=== PATIENT | female | born 1995 | race Caucasian/White ===

== ENCOUNTER 2017-10-26 10:38 | Outpatient (CLI) | payer OTHER, BC ==
[2017-10-26 20:18] LABS: FOLLICLE STIMULATING HORMONE 5.95 mIU/mL
[2017-10-26 20:20] LABS: LUTEINIZING HORMONE 16.34 mIU/mL
== END 2017-10-26 10:39 | disposition home or self-care (01) ==
LOC: LAB.N 10:38
PROVIDERS: ATTEND Obstetrics & Gynecology
DX: N83.209 Unspecified ovarian cyst, unspecified side (principal)
CPT/HCPCS: 36415; 83001; 83002

== ENCOUNTER 2020-10-15 16:24 | Outpatient (CLI) | payer OTHER | END 2020-10-15 16:25 | disposition home or self-care (01) | LOC: LAB.N 16:24 → MERGE 16:24 → LAB.N 16:25 | PROVIDERS: ATTEND Nurse Practitioner Obstetrics & Gynecology | DX: O26.859 Spotting complicating pregnancy, unspecified trimester (principal) ==

== ENCOUNTER 2020-10-18 20:51 | Outpatient (CLI) | payer OTHER ==
--- NOTE | 2020-10-19 07:34 | Ultrasound Report ---
PROCEDURE: OB First Trimester w/TV INDICATIONS: SPOTTING, OUTSIDE/PRIOR DATING DATA: Last menstrual period (LMP): 07/10/2020. LMP-based estimated date of delivery (BONNIE): 04/16/2021. First dating scan (date and location): 10/18/2020. Estimated date of delivery (BONNIE) from first dating scan: N/K: No evidence of intrauterine o r ectopic . TECHNIQUE: Real-time scanning was performed of the maternal pelvic organs, with image documentation. Endovagina l scanning was also performed to better visualize the fetus and maternal ovaries. COMPARISON: None FINDINGS: There is no evidence of intrauterine or ectopic . The uterus measures 7 x 3 x 4 cm. Endometrium is 7.4 mm in thickness. Left ovary measures 3.3 x 4.2 x 2.0 cm. Right ovary measures 3.2 x 1.9 x 2.9 cm. There is normal intr aovarian flow noted bilaterally. No abnormal adnexal masses. IMPRESSION: 1. No evidence of intrauterine or ectopic . 2. Otherwise unremarkable pelvic ultrasound. A preliminary report with the above findings was provided at the time of the study by [facility]. Reviewed by: Amilcar Gaytan MD on 10/19/2020 6:33 AM ROSIE Approved by: Amilcar Gaytan MD on 10/19/2020 6:33 AM [facility] Station ID: [id number]
== END 2020-10-18 20:52 | disposition home or self-care (01) ==
LOC: DI 20:51 → MERGE 20:51 → DI 20:52
PROVIDERS: ATTEND Obstetrics & Gynecology
DX: O26.859 Spotting complicating pregnancy, unspecified trimester (principal)

== ENCOUNTER 2020-10-21 15:23 | Outpatient (CLI) | payer OTHER ==
[2020-10-21 15:50] LABS: BASOPHILS # (AUTO) 0.1 10^3/uL (0.0-0.1); BASOPHILS % (AUTO) 0.7 %; EOSINOPHILS # (AUTO) 0.2 10^3/uL (0.0-0.7); EOSINOPHILS % (AUTO) 2.5 %; HCT - HEMATOCRIT 36.1 % (37.0-47.0); HGB - HEMOGLOBIN 10.2 g/dL (12.0-16.0); LYMPHOCYTES # (AUTO) 1.6 10^3/uL (1.5-3.5); MEAN CORPUSCULAR HEMOGLOBIN 22.4 pg (27.0-31.0); MEAN CORPUSCULAR HGB CONC 28.3 g/dL (32.0-36.0); MEAN CORPUSCULAR VOLUME 79.2 fL (81.0-99.0); MEAN PLATELET VOLUME 11.1 fL (7.9-10.8); MONOCYTES # (AUTO) 0.6 10^3/uL (0.0-1.0); MONOCYTES % (AUTO) 7.9 %; NEUTROPHILS # (AUTO) 4.8 10^3/uL (1.5-6.6); NEUTROPHILS % (AUTO) 66.9 %; PLT - PLATELET COUNT 251 10^3/uL (130-450); RED BLOOD COUNT 4.56 10^6/uL (4.20-5.40); WHITE BLOOD COUNT 7.2 x10^3/uL (4.8-10.8)
[2020-10-21 15:52] LABS: SLIDE REVIEW? Indicated
[2020-10-21 16:30] LABS: RBC MORPHOLOGY (MULTIPLE) 1+ HYPOCHROMASIA (NORMAL)
[2020-10-21 16:31] LABS: PLATELET ESTIMATE, MANUAL NORMAL (130-450,000) (NORMAL); PLATELET MORPHOLOGY NORMAL APPEARANCE (NORMAL)
== END 2020-10-21 15:24 | disposition home or self-care (01) ==
LOC: MERGE 15:23 → LAB 15:23
PROVIDERS: ATTEND Obstetrics & Gynecology
DX: Z01.812 Encounter for preprocedural laboratory examination (principal); O02.1 Missed abortion; Z20.822 Contact with and (suspected) exposure to COVID-19
CPT/HCPCS: 36415; 85025

== ENCOUNTER 2020-10-24 06:39 | Day surgery (SDC) | payer OTHER ==
[~2020-10-24 06:39] MED LIST: ACETAMINOPHEN 1,000 MG/100 ML 100 ML IV ONE; CELECOXIB 100 MG CAPSULE PO ONE; GABAPENTIN 400 MG CAPSULE ONE; ceFAZolin 2 GM/50 ML 2 GM/50 ML BAG IV ONE
[2020-10-24] MEDS ORDERED: SILVER NITRATE APPLICATOR TOP ONE ×2 (07:12→07:20)
[2020-10-24] MEDS ORDERED: LIDOCAINE 2%-EPI 1:100000 20 ML MDV SUBQ ONE ×3 (07:19)
[2020-10-24] MEDS ORDERED: BUPIVACAINE 0.25% PF 30 ML VIAL SUBQ ONE (07:20)
[2020-10-24] MEDS ORDERED: LIDOCAINE 2%-EPI 1:100000 20 ML MDV ONE (07:21)
[2020-10-24] MEDS ORDERED: BUPIVACAINE 0.25% PF 30 ML VIAL ONE (07:21)
[2020-10-24] MEDS ORDERED: LACTATED RINGERS 1,000 ML IV ONE ×2 (07:24→08:26)
--- NOTE | 2020-10-24 07:24 | ANESTHESIA ---
Pre-Anesthesia VS, & Labs - Diagnosis Retained products of conception - Procedure myosure hysterscopy, D&C Vital Signs: Temp Pulse Resp BP Pulse Ox 36.7 C 97 16 135/74 H 100 10/24/20 06:45 10/24/20 06:45 10/24/20 06:45 10/24/20 06:45 10/24/20 06:45 Height: 5 ft 1 in Weight (kg): 63 kg Body Mass Index: 26.2 BMI Classification: Overweight - NPO >8 hours - Is Patient ?: No - Lab Results Current Lab Results: Laboratory Tests 10/24/20 07:16: POC Whole Bld Glucose 100 Home Medications and Allergies Home Medications: Ambulatory Orders Propranolol [Inderal] 10 mg PO BID 10/23/20 Propranolol [Inderal] 10 mg PO BID 10/23/20 Allergies/Adverse Reactions: Allergies Allergy/AdvReac Type Severity Reaction Status Date / Time cefaclor Allergy Unknown Verified 10/22/20 11:27 Anes History & Medical History - Anesthetic History Family history of Anesthesia Complications: Denies Family history of Malignant Hyperthermia: Denies - Medical History Cardiovascular: reports: None, Other (palpitations when anxious) Pulmonary: reports: None Gastrointestinal: reports: None Urinary: reports: None Neuro: reports: None Musculoskeletal: reports: None Endocrine/Autoimmune: reports: None Blood Disorders: reports: None Skin: reports: None Smoking Status: Current every day smoker Psychosocial: reports: Anxiety History of Cancer?: No Exam General: Alert, Oriented x3, Cooperative, No acute distress Dental: WNL Mouth Openin Fingerbreadth Neck Mobility: Normal Mallampati classification: I Thyromental Distance: 4-6 cm Mental/Cognitive Status: Alert/Oriented X3, Normal for patient Plan Anesthesia Type: General Consent for Procedure(s) Verified and Reviewed: Yes Code Status: Attempt Resuscitation ASA classification: 1-Healthy patient Is this case an emergency?: No
[2020-10-24] MEDS ORDERED: ONDANSETRON 4 MG/2 ML VIAL ONE (07:34)
[2020-10-24] MEDS ORDERED: PROPOFOL 200 MG/20 ML VIAL IVP ONE ×2 (07:34→07:43)
[2020-10-24] MEDS ORDERED: DEXAMETHASONE 4 MG/ML VIAL ONE (07:34)
[2020-10-24] MEDS ORDERED: LIDOCAINE-MPF 2% 5 ML VIAL ONE (07:34)
[2020-10-24] MEDS ORDERED: PROPOFOL 500 MG/50 ML 500 MG/50 ML VIAL ONE (07:35)
[2020-10-24] MEDS ORDERED: fentaNYL 100 MCG/2 ML VIAL ONE (07:37)
[2020-10-24] MEDS ORDERED: KETAMINE 500 MG/10 ML VIAL ONE (07:37)
[2020-10-24] MEDS ORDERED: MIDAZOLAM 2 MG/2 ML VIAL ONE (07:37)
[2020-10-24] MEDS ORDERED: SODIUM CHLORIDE 0.9% 10 ML ONE (07:40)
[2020-10-24] MEDS ORDERED: BUPIVACAINE 0.5% PF 30 ML VIAL INFIL ONE ×2 (08:05)
[2020-10-24] MEDS ORDERED: BUPIVACAINE 0.5% PF 30 ML VIAL ONE (08:11)
[2020-10-24] MEDS ORDERED: KETOROLAC 30 MG/ML VIAL ONE (08:11)
[2020-10-24] MEDS ORDERED: HYDROmorphone 0.5 MG/0.5 ML SYRINGE IVP PRN (08:28)
[2020-10-24] MEDS ORDERED: ONDANSETRON 4 MG/2 ML VIAL IVP PRN (08:28)
[2020-10-24] MEDS ORDERED: oxyCODONE 5 MG TABLET PO PRN (08:28)
[2020-10-24] MEDS ORDERED: LORazepam 2 MG/ML VIAL IVP PRN (08:28)
--- NOTE | 2020-10-24 08:32 | OPERATIVE REPORT ---
Operative Report - General Procedure Date: 10/24/20 Planned Procedure: Hysterscopy with Myosure Pre-Op Diagnosis: persistant Quantiaive HCG retained POC Procedure Performed: Same Post Op Diagnosis: Persistant QuantativeHCG - Procedure Note Primary Surgeon: Dangelo Boone MD Anesthesia Provider: Kalina Martínez CRNA Anesthesia Technique: Local, MAC Pathology: Endometrium Estimated Blood Loss (mL): 10
--- NOTE | 2020-10-24 08:55 | ANESTHESIA POST OP EVALUATION ---
Anesthesia Post Eval - Post Anesthesia Eval Vitals: Last Vital Signs Temp 36.0 C L 10/24/20 08:26 Pulse 73 10/24/20 08:45 Resp 22 10/24/20 08:45 BP 104/74 10/24/20 08:45 Pulse Ox 100 10/24/20 08:45 CV Function Including HR & BP: positive: Stable Pain Control: positive: Satisfactory Nausea & Vomiting: positive: Negative Mental Status: positive: Baseline Respiratory Status: Airway Patent Hydration Status: Satisfactory Anesthesia Complications: positive: None
[2020-10-24 09:17] VITALS: BP 101/62
[2020-10-24 09:32] LABS: HCG UR QUAL NEGATIVE
--- NOTE | 2020-10-24 09:40 | OPERATIVE REPORT ---
DATE OF SERVICE: 10/24/2020 Physician: Dangelo Boone MD PREOPERATIVE DIAGNOSES: Persistent quantitative hCG, rule out retained products of conception. POSTOPERATIVE DIAGNOSES: Continued persistent quantitative hCG with empty uterus. PROCEDURE PERFORMED: Hysteroscopy with MyoSure. SURGEON: Dangelo Boone MD. ANESTHESIOLOGIST: Gamaliel Martínez CRNA. ANESTHETIC: IV sedation with paracervical block. FINDINGS: Upon entering the uterine cavity, there was no evidence of any tissue. Both cornu were in spected. There was no evidence of any bleeding. DESCRIPTION OF PROCEDURE: Following adequate IV sedation, the patient was placed in the dorsal litho justine position in [facility]. At this point, she was prepped and draped in the usual fashion. A timeout was performed. The cervix was visualized with a speculum, and then the uterosacral ligaments were injected with 5 mL each of 0.25% Marcaine with epinephrine and 1% lidocaine. At this time, the cervix was grasped with a single-tooth tenaculum. It was then dilated up to 7 mm. A hysteroscope w as introduced. The uterus was visualized, both cornu as well as anterior and posteriorly, and there was no evidence of any visible placental tissue. Tissue samples were taken with the MyoSure. These were sent for evaluation. At this point, the procedure was finished. The cervix was released from t he single-tooth tenaculum. The patient tolerated the procedure well and was taken to recovery in sta ble condition. Fluid deficit was 270 mL. TD: 10/24/2020 08:43
== END 2020-10-24 06:40 | disposition home or self-care (01) ==
LOC: SDS 06:39 → MERGE 07:30
PROVIDERS: ATTEND Obstetrics & Gynecology
PROC: 0UDB8ZX Extraction of Endometrium, Via Natural or Artificial Opening Endoscopic, Diagnostic (ICD-10-PCS; principal; 2020-10-24 07:30)
DX: D25.0 Submucous leiomyoma of uterus (principal); E66.3 Overweight; Z68.26 Body mass index [BMI] 26.0-26.9, adult; F17.200 Nicotine dependence, unspecified, uncomplicated
CPT/HCPCS: 58558; 81025; 84702; A9270; J0131; J0690; J7120

== ENCOUNTER 2020-10-30 14:04 | Outpatient (CLI) | payer OTHER | END 2020-10-30 14:05 | disposition home or self-care (01) | LOC: LAB 14:04 | PROVIDERS: ATTEND Obstetrics & Gynecology | DX: O26.859 Spotting complicating pregnancy, unspecified trimester (principal) ==

== ENCOUNTER 2020-10-30 14:07 | Outpatient (CLI) | payer OTHER | END 2020-10-30 14:08 | disposition home or self-care (01) | LOC: LAB 14:07 | PROVIDERS: ATTEND Obstetrics & Gynecology | DX: O26.859 Spotting complicating pregnancy, unspecified trimester (principal) | CPT/HCPCS: 36415; 84702 ==

== ENCOUNTER 2022-08-01 09:10 | Emergency (ER) | payer OTHER ==
[2022-08-01 09:49] LABS: BASOPHILS # (AUTO) 0.1 10^3/uL (0.0-0.1); BASOPHILS % (AUTO) 0.8 %; EOSINOPHILS # (AUTO) 0.1 10^3/uL (0.0-0.7); EOSINOPHILS % (AUTO) 1.8 %; HCT - HEMATOCRIT 43.5 % (37.0-47.0); HGB - HEMOGLOBIN 13.6 g/dL (12.0-16.0); LYMPHOCYTES # (AUTO) 2.5 10^3/uL (1.5-3.5); LYMPHOCYTES % (AUTO) 34.2 %; MEAN CORPUSCULAR HEMOGLOBIN 28.9 pg (27.0-31.0); MEAN CORPUSCULAR HGB CONC 31.3 g/dL (32.0-36.0); MEAN CORPUSCULAR VOLUME 92.4 fL (81.0-99.0); MEAN PLATELET VOLUME 11.6 fL (7.9-10.8); MONOCYTES # (AUTO) 0.4 10^3/uL (0.0-1.0); MONOCYTES % (AUTO) 5.7 %; NEUTROPHILS # (AUTO) 4.1 10^3/uL (1.5-6.6); NEUTROPHILS % (AUTO) 57.1 %; PLT - PLATELET COUNT 256 10^3/uL (130-450); RED BLOOD COUNT 4.71 10^6/uL (4.20-5.40); WHITE BLOOD COUNT 7.2 x10^3/uL (4.8-10.8)
[2022-08-01 10:10] LABS: ALBUMIN 4.2 g/dL (3.2-5.5); ALBUMIN/GLOBULIN RATIO 1.1 (1.0-2.2); BILIRUBIN,TOTAL 0.7 mg/dL (0.2-1.0); CALCIUM 9.1 mg/dL (8.5-10.3); CREATININE 0.7 mg/dL (0.4-1.0)
[2022-08-01 13:51] LABS: BILIRUBIN,URINE NEGATIVE (NEGATIVE); GLUCOSE, URINE (UA) NEGATIVE (NEGATIVE); KETONES,URINE (UA) NEGATIVE (NEGATIVE); LEUKOCYTE ESTERASE, URINE NEGATIVE (NEGATIVE); NITRITE,URINE NEGATIVE (NEGATIVE); OCCULT BLOOD,URINE NEGATIVE (NEGATIVE); PROTEIN,URINE NEGATIVE (NEGATIVE); UROBILINOGEN,URINE 0.2 (NORMAL) E.U./dL (NORMAL)
--- NOTE | 2022-08-01 13:51 | ED Physician Documentation ---
History of Present Illness - Stated complaint Stated Complaint: BLOOD IN STOOL - Chief complaint Chief Complaint: Abd Pain - Additonal information Additional information: 27-year-old female presents emergency department for evaluation of painless rectal bleeding. She was at work this morning when she had a bowel movement. When she wiped she noticed a lot of blood on the tissue and looked in the toilet and states it was filled with blood. No history of similar. She denies a history of constipation. Typically has daily bowel movements. She is not anticoagulated and does not take daily NSAID medications. Denies hematochezia or melena. Frequent alcohol Past surgical history most significant only for a D&C. Review of Systems Constitutional: reports: Reviewed and negative Throat: reports: Reviewed and negative Cardiac: reports: Reviewed and negative Respiratory: reports: Reviewed and negative GI: reports: Other (Rectal bleeding) : reports: Reviewed and negative Skin: reports: Reviewed and negative PD PAST MEDICAL HISTORY - Past Medical History Cardiovascular: None, Other (palpitations when anxious) Respiratory: None Neuro: None Endocrine/Autoimmune: None GI: None : None HEENT: None Psych: Anxiety Musculoskeletal: None Derm: None - Past Surgical History Past Surgical History: No - Present Medications Home Medications: Ambulatory Orders Medication Instructions Recorded Confirmed Ibuprofen [Motrin] 400 mg PO Q6H PRN #30 tablet 02/24/16 Propranolol [Inderal] 10 mg PO BID 10/23/20 10/23/20 - Allergies Allergies/Adverse Reactions: Allergies Allergy/AdvReac Type Severity Reaction Status Date / Time cefaclor Allergy Unknown Verified 10/22/20 11:27 - Social History Does the pt smoke?: Yes Smoking Status: Current every day smoker Does the pt drink ETOH?: Yes Does the pt have substance abuse?: No PD ED PE NORMAL - General General: Alert and oriented X 3, No acute distress - HEENT HEENT: PERRL - Cardiac Cardiac: RRR, No murmur - Respiratory Respiratory: No respiratory distress, Clear bilaterally - Abdomen Abdomen: Normal bowel sounds, Soft - Rectal Rectal: Other (Chaperoned rectal exam with JORDIN Fleming. Externally no fissures or hemorrhoids seen. No tenderness of the rectum. Digital rectal exam revealed no tenderness and no blood in the vault. 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 Eye Opening: Spontaneous Motor: Obeys Commands Verbal: Oriented GCS Score: 15 Results - Vitals Vitals: Vital Signs - 24 hr 08/01/22 09:14 Temperature 36.4 C L Heart Rate 97 Respiratory 16 Rate Blood Pressure 120/84 H O2 Saturation 100 Oxygen O2 Source Room air - Labs Labs: Laboratory Tests 08/01/22 08/01/22 09:45 09:45 WBC 7.2 RBC 4.71 Hgb 13.6 Hct 43.5 MCV 92.4 MCH 28.9 MCHC 31.3 L RDW 15.0 Plt Count 256 MPV 11.6 H Neut # (Auto) 4.1 Lymph # (Auto) 2.5 [place]oun # (Auto) 0.4 Eos # (Auto) 0.1 Baso # (Auto) 0.1 Absolute Nucleated RBC 0.00 Nucleated RBC % 0.0 Sodium 141 Potassium 4.0 Chloride 104 Carbon Dioxide 28 Anion Gap 9.0 BUN 16 Creatinine 0.7 Estimated GFR (MDRD) 100 Glucose 96 Calcium 9.1 Total Bilirubin 0.7 AST 31 ALT 39 Alkaline Phosphatase 97 Total Protein 8.0 Albumin 4.2 Globulin 3.8 Albumin/Globulin Ratio 1.1 Lipase 27 PD Medical Decision Making - ED course Complexity details: reviewed results, considered differential, d/w patient ED course: 27-year-old female presents the emergency department for evaluation of painless rectal bleeding that she noted this morning when she defecated while at work. No history of similar in the past. Here in the emergency department we did obtain a CBC and electrolytes with no worrisome findings such as anemia or an elevated BUN. Her abdominal exam was benign. Chaperoned rectal exam revealed no obvious findings such as hemorrhoid or fissure. There was no stool available for testing. I do suspect that she likely has an internal hemorrhoid. I making the recommendation for her to use Preparation H suppository after her bowel movements each day for the next 3 to 4 days. I am also recommending her to soften her stools with Metamucil. If symptoms not markedly improved would benefit from follow-up with her primary care provider for evaluation of a col onoscopy. Given age and lack of pertinent hx I doubt condition such as inflammatory bowel disease. No abdominal tenderness was elicited, therefore I doubt Meckel's diverticulitis. In addition given her unremarkable labs we elected to defer any CT imaging today. Patient is discharged home in stable condition. Emergent return precautions discussed Departure - Departure Disposition: 01 Home, Self Care Clinical Impression: Rectal bleed Condition: Stable Record reviewed to determine appropriate education?: Yes Comments: You are seen today in the emergency department for painless rectal bleeding. Here in the emergency department we did obtain a CBC and electrolytes and they are essentially normal. Your vital signs are also normal. We did perform a chaperoned rectal exam and did not find anything to suggest anal fissures, external hemorrhoids or internal hemorrhoids though I suspect you may have 1 higher up than could be felt on the exam. I do recommend that you increase your water intake and begin taking a bulking stool softener such as Metamucil daily. This will help prevent any straining that you may have with defecation. I would also like you to buy Preparation H suppositories [id number] and insert 1 each day for the next 3 to 4 days after your bowel movements. If you find that this rectal bleeding continues you will need to see your primary care doctor because at that point you should be referred for colonoscopy for evaluation of other concerns or causes of rectal bleeding such as polyps, inflammatory bowel disease or hemorrhoids Return to the emergency department for any fainting episodes or severe bleeding.
[2022-08-01 13:52] LABS: CLARITY,URINE CLEAR (CLEAR)
[2022-08-01 13:53] LABS: HCG UR QUAL NEGATIVE
[2022-08-01 14:06] VITALS: BP 138/94
== END 2022-08-01 14:10 | disposition home or self-care (01) ==
LOC: ED 09:10
DX: K62.5 Hemorrhage of anus and rectum (principal); F17.200 Nicotine dependence, unspecified, uncomplicated
CPT/HCPCS: 36415; 80053; 81001; 81003; 81025; 83690; 85025; 87086; 99282; 99283

== ENCOUNTER 2022-10-15 12:49 | Outpatient (CLI) | payer OTHER | END 2022-10-15 23:59 | disposition critical access hospital (66) | LOC: EMS 12:49 | DX: R20.2 Paresthesia of skin (principal); R06.4 Hyperventilation; R00.0 Tachycardia, unspecified | CPT/HCPCS: A0425; A0429 ==

== ENCOUNTER 2022-10-15 13:08 | Emergency (ER) | payer OTHER ==
[2022-10-15] MEDS ORDERED: LORazepam 1 MG TABLET PO STA (13:38)
--- NOTE | 2022-10-15 13:41 | ED Physician Documentation ---
History of Present Illness - Stated complaint Stated Complaint: PANIC ATTACK - Chief complaint Chief Complaint: MHE - Additonal information Additional information: 27-year-old female presents to the emergency department for concerns of a panic attack. She works as a delivery driver and suddenly began to feel flushed have a racing heart, felt paresthesias in her hands and then on the top of her head and both feet. reported bith her hands began to spasm. She felt like she could not talk. worried she was having a stroke. She is transported here via EMS. Patient currently undergoing fertility treatments uncertain if . She does have a history of anxiety for which she takes Lexapro. Occasionally uses Xanax and used it about 2 weeks ago. She states she has had panic attacks in the past. She cannot identify precipitating cause today. On presentation and evaluation I am greeted by a anxious appearing woman. She has trembling hands. Fluid speech. No focal deficits. She is tearful but trying not to cry. She denies any recent illness though did vomit twice this morning. No diarrhea, chest pain, shortness of air unilateral leg swelling, cough or fevers. No abdominal pain. No dysuria urgency or frequency. Review of Systems Constitutional: reports: Reviewed and negative Eyes: reports: Reviewed and negative Throat: reports: Reviewed and negative Cardiac: reports: Reviewed and negative Respiratory: reports: Reviewed and negative GI: reports: Vomiting : reports: Reviewed and negative Skin: reports: Reviewed and negative Musculoskeletal: reports: Reviewed and negative PD PAST MEDICAL HISTORY - Past Medical History Cardiovascular: None, Other (palpitations when anxious) Respiratory: None Neuro: None Endocrine/Autoimmune: None GI: None : None HEENT: None Psych: Anxiety Musculoskeletal: None Derm: None - Past Surgical History Past Surgical History: No - Present Medications Home Medications: Ambulatory Orders Medication Instructions Recorded Confirmed Escitalopram [Lexapro] 10 mg PO DAILY 10/15/22 10/15/22 - Allergies Allergies/Adverse Reactions: Allergies Allergy/AdvReac Type Severity Reaction Status Date / Time cefaclor Allergy Unknown Verified 10/22/20 11:27 - Social History Does the pt smoke?: Yes Smoking Status: Current every day smoker Does the pt drink ETOH?: Yes Does the pt have substance abuse?: No PD ED PE NORMAL - General General: Alert and oriented X 3, Well developed/nourished. No: No acute distress (Anxious appearing) - HEENT HEENT: Atraumatic, Moist mucous membranes, Pharynx benign - Neck Neck: Supple, no meningeal sign, No adenopathy - Cardiac Cardiac: RRR, No murmur - Respiratory Respiratory: No respiratory distress, Clear bilaterally - Abdomen Abdomen: Normal bowel sounds, Soft - Back Back: No CVA TTP - Derm Derm: Normal color, Warm and dry, No rash - Extremities Extremities: No deformity, No tenderness to palpate, Normal ROM s pain - Neuro Neuro: Alert and oriented X 3, floor broker 2-12 intact Eye Opening: Spontaneous Motor: Obeys Commands Verbal: Oriented GCS Score: 15 Results - Vitals Vitals: Vital Signs - 24 hr 10/15/22 13:20 Temperature 36.4 C L Heart Rate 102 H Respiratory 22 Rate Blood Pressure 131/95 H O2 Saturation 100 Oxygen O2 Source Room air - Labs Labs: Laboratory Tests 10/15/22 10/15/22 10/15/22 13:48 13:48 13:48 WBC 12.2 H RBC 4.96 Hgb 14.5 Hct 46.0 MCV 92.7 MCH 29.2 MCHC 31.5 L RDW 16.3 H Plt Count 245 MPV 11.7 H Neut # (Auto) 9.8 H Lymph # (Auto) 1.7 Orange # (Auto) 0.5 Eos # (Auto) 0.1 Baso # (Auto) 0.1 Absolute Nucleated RBC 0.00 Nucleated RBC % 0.0 Sodium 141 Potassium 3.0 L Chloride 100 L Carbon Dioxide 25 Anion Gap 16.0 H BUN 10 Creatinine 0.7 Estimated GFR (MDRD) 100 Glucose 88 Calcium 9.5 Total Bilirubin 0.5 AST 32 ALT 35 Alkaline Phosphatase 86 Total Protein 8.2 Albumin 4.5 Globulin 3.7 Albumin/Globulin Ratio 1.2 Lipase 27 Serum HCG, Qual NEGATIVE PD Medical Decision Making - ED course Complexity details: reviewed results, re-evaluated patient, considered differential, d/w patient ED course: This is a well-appearing though anxious 27-year-old female that presents the emergency department when she was at work and began to have flushing, paresthesias in her hands both legs and on the top of her head. She felt like she could not speak. She began to have carpal spasms in both her hands. She states she has a history of anxiety. She occasionally takes Xanax. She is also currently undergoing fertility treatments. On presentation to the emergency department NIHSS is 0. Sparing very mild tachycardia with a heart rate of 102 unremarkable vital signs. No fever. Cardiopulmonary auscultation was otherwise unremarkable. Clinically the patient was tearful and anxious appearing. I did give her a milligram of Ativan and on reevaluation less anxious though she is fixated on the concern that she is having a stroke. I did obtain a CBC and electrolytes as well as a serum hCG. Per my interpretation no acute worrisome findings. Her potassium is mildly low which I attribute to the anxiety and shift of potassium intracellularly. She was administered 40 potassium orally here in the emergency department. I discussed with patient that with her history of anxiety and presentation most likely she had a panic attack. Clinically her symptoms are not consistent with acute CVA and I did defer imaging of her brain given this. She has a stable gait. She is discharged home in stable condition to follow closely with her PCP. May benefit from counseling or talk therapy. She can remain on the Lexapro. Emergent return precautions otherwise discussed Departure - Departure Disposition: 01 Home, Self Care Clinical Impression: Paresthesias, Anxiety, Hypokalemia Condition: Stable Record reviewed to determine appropriate education?: Yes Instructions: ED Stress React Comments: Jacque gleason came to the emergency department because at work he began to have tingling in your hands on top of your head and your lower extremities. Your hands also began to go into spasm and he felt like he could not talk. You do have a history of anxiety though you do not report having any panic attacks in the past. I am here in the emergency department your labs were essentially normal with the exception of a low potassium. This could be causing some of your symptoms and we did give you some extra potassium here in the ER. As we discussed at the bedside your symptoms are not consistent with a stroke. A panic attack is more consistent with your symptoms. We did give you a milligram of Ativan today in the emergency department which seems to have helped. In general I would like you to drink plenty of fluids at home and get lots of rest. Please discuss this ED visit with your primary care provider. You would benefit from referral for talk therapy or counseling. Return to the ER if you develop facial droop, focal weakness in your arms or legs or have severe difficulty breathing or chest pain. NIHSS - Time Time: 13:30 - Level of Consciousness Level of consciousness: (0) Alert, Keenly responsive LOC Questions: (0) Answers both Q's correct LOC Commands: (0) Performs both correctly - Gaze Best Gaze: (0) Normal - Visual Visual: (0) No loss - Facial Palsy Facial Palsy: (0) Normal, symmetrical movement - Motor Arms (both separate) Motor Arm (right): (0) No drift Motor Arm (left): (0) No drift - Motor Legs (both separate) Motor Leg (right): (0) No drift Motor Leg (left): (0) No drift - Limb Ataxia Limb Ataxia: (0) Absent - Sensory Sensory: (0) Normal - Best Language Best Language: (0) No aphasia - Dysarthria Dysarthria: (0) Normal - Extinction and Inattention (formally neg Extinction and inattention: (0) No abnormality - Total Score/Results Total Score/Result: 0
[2022-10-15 13:53] LABS: BASOPHILS # (AUTO) 0.1 10^3/uL (0.0-0.1); BASOPHILS % (AUTO) 0.6 %; EOSINOPHILS # (AUTO) 0.1 10^3/uL (0.0-0.7); EOSINOPHILS % (AUTO) 0.5 %; HGB - HEMOGLOBIN 14.5 g/dL (12.0-16.0); LYMPHOCYTES # (AUTO) 1.7 10^3/uL (1.5-3.5); MEAN CORPUSCULAR HEMOGLOBIN 29.2 pg (27.0-31.0); MEAN CORPUSCULAR HGB CONC 31.5 g/dL (32.0-36.0); MEAN CORPUSCULAR VOLUME 92.7 fL (81.0-99.0); MEAN PLATELET VOLUME 11.7 fL (7.9-10.8); MONOCYTES # (AUTO) 0.5 10^3/uL (0.0-1.0); MONOCYTES % (AUTO) 3.9 %; NEUTROPHILS # (AUTO) 9.8 10^3/uL (1.5-6.6); NEUTROPHILS % (AUTO) 80.8 %; PLT - PLATELET COUNT 245 10^3/uL (130-450); RED BLOOD COUNT 4.96 10^6/uL (4.20-5.40); RED CELL DISTRIBUTION WIDTH 16.3 % (12.0-15.0); WHITE BLOOD COUNT 12.2 x10^3/uL (4.8-10.8)
[2022-10-15 14:07] LABS: ALBUMIN 4.5 g/dL (3.2-5.5); ALBUMIN/GLOBULIN RATIO 1.2 (1.0-2.2); BILIRUBIN,TOTAL 0.5 mg/dL (0.2-1.0); CALCIUM 9.5 mg/dL (8.5-10.3); CREATININE 0.7 mg/dL (0.4-1.0); TOTAL PROTEIN 8.2 g/dL (6.7-8.2)
[2022-10-15 14:21] LABS: HCG,QUALITATIVE BLOOD NEGATIVE
[2022-10-15] MEDS ORDERED: POTASSIUM CHLORIDE 20 MEQ TABLET PO STA (14:30)
[2022-10-15 14:48] VITALS: BP 115/84
== END 2022-10-15 14:48 | disposition home or self-care (01) ==
LOC: EDUNIT# → ED 13:08
DX: F41.9 Anxiety disorder, unspecified (principal); E87.6 Hypokalemia; R20.2 Paresthesia of skin; F17.200 Nicotine dependence, unspecified, uncomplicated; Z79.899 Other long term (current) drug therapy
CPT/HCPCS: 36415; 80053; 83690; 84703; 85025; 99283; 99284; A9270; J8499